=== PATIENT | male | born 1985 | race Caucasian/White ===

== ENCOUNTER → 2017-03-14 | Day surgery (SDC) | payer BC ==
[~2017-03-14] MED LIST: BENTYL10 MG PO; OMEPRAZOLE40 M1 PO
--- NOTE | ~2017-03-14 | OR ---
Unit #: [id number] #: [id number] Patient: ASAD DAMON [id number] [address] [address] [id number] O MR#: [id number] NAME: ASAD DAMON ROOM: Date of Procedure: 03/14/2017 Admission Date: 03/14/2017 Surgeon: Jules Jay M.D. : 1985 Attending Physician: Jules Jay M.D. Primary Care Physician: Lisy Gannon M.D. OPERATIVE REPORT PREOPERATIVE DIAGNOSIS Cholecystitis. POSTOPERATIVE DIAGNOSIS Acute cholecystitis. PROCEDURE PERFORMED Laparoscopic cholecystectomy. ASSISTANT King Edwards M.D. ANESTHESIA General. ESTIMATED BLOOD LOSS Minimal. IV FLUIDS 800 crystalloid. COMPLICATIONS None. INDICATIONS FOR PROCEDURE The patient is a 32-year-old with right upper quadrant abdominal pain. Ultrasound shows thickened gallbladder. He presents for suspected cholecystitis. DESCRIPTION OF PROCEDURE The patient was taken to the operative theater and placed in supine position. General anesthesia was induced. The abdomen was prepped and draped. A 5-mm Optiview trocar was placed in the right upper quadrant without difficulty. The abdomen was insufflated to 15 mmHg with CO2. Under direct vision, I placed a subxiphoid 10 mm, right lateral 5 mm, umbilical 5 mm. General inspection of the abdomen revealed acute cholecystitis. I decompressed the gallbladder using a needle and syringe, so I was able to grasp this and retracted up over the liver. I then took down all the adhesions, dissected the neck of the gallbladder and identified the cystic duct. Its junction with the gallbladder was Unit #: [id number] #: [id number] Patient: ASAD DAMON confirmed. It was thus skeletonized, doubly hemoclipped, and divided. The cystic artery laid immediately posterior. This was skeletonized, doubly hemoclipped, and divided. The gallbladder was removed from the gallbladder bed and delivered via the subxiphoid port in an Endo pouch. Hemostasis was adequate. I irrigated thoroughly with normal saline, aspirated all fluids dry. The ports were removed and the fascia was closed with 0 Vicryl and skin with 4-0 Vicryl. The patient tolerated the procedure well and sent to recovery room in good condition. Dictated by... Mara Barrios TD: 03/14/2017 15:30 JOB #: [id number] OPERATIVE REPORT Page 1 of 1 X Jules Jay MD PROCEDURE OPERATIVE NOTE
== END | disposition home or self-care (01) ==
LOC: CSUR 09:24
DX: K80.00 Calculus of gallbladder with acute cholecystitis without obstruction (principal); K65.8 Other peritonitis; Z79.899 Other long term (current) drug therapy
CPT/HCPCS: 88304; J0330; J0690; J1100; J2250; J2405; J2710; J3010